=== PATIENT | female | born 1995 | race African-American/Black ===

== ENCOUNTER 2022-03-04 14:37 | Day surgery (SDC) | payer MEDICAID, OTHER ==
[2022-03-04] MEDS ORDERED: hydrALAZINE 20 MG/ML VIAL SLOW IVP PRN (15:53)
[2022-03-04 17:46] LABS: Fetal Membranes Rupture No Membranes Rupture (No Rupture)
[2022-03-05 17:34] LABS: Chlamydia by PCR Not Detected (NotDetected); GC by PCR Not Detected (NotDetected)
== END 2022-03-04 18:20 | disposition home or self-care (01) ==
LOC: CSHLD/OP 14:37
PROVIDERS: ATTEND Student in an Organized Health Care Education/Training Program
DX: O99.891 Other specified diseases and conditions complicating pregnancy (principal); N89.8 Other specified noninflammatory disorders of vagina; O09.293 Supervision of pregnancy with other poor reproductive or obstetric history, third trimester; Z3A.34 34 weeks gestation of pregnancy; Z86.19 Personal history of other infectious and parasitic diseases; Z14.8 Genetic carrier of other disease
CPT/HCPCS: 76819; 84112; 87480; 87491; 87510; 87591; 87660; 99284

== ENCOUNTER 2022-03-12 07:02 | Day surgery (SDC) | payer OTHER ==
[2022-03-12 07:32] VITALS: BMI 27.9
[2022-03-12] MEDS ORDERED: hydrALAZINE 20 MG/ML VIAL SLOW IVP PRN ×2 (07:39→23:19)
[2022-03-12 11:18] LABS: Bilirubin Neg (Negative); Blood, Urine Negative (Negative); Clarity Clear (Clear); Glucose, Urine (Dipstick) Normal (Negative); Ketone, Urine Negative (Negative); Leukocyte Negative (Negative); Nitrite Negative (Negative); Protein, Urine (Dipstick) Negative (Neg-Trace); Urobilinogen Normal mg/dL (Less than 2)
[2022-03-12 11:42] LABS: Urine Culture Reflex No No
[2022-03-12 11:44] LABS: Bacteria/HPF None Seen HPF (None Seen); RBC/HPF 0-3 HPF (0-3); Squamous Epithelial 0-3 HPF (0-3); WBC/HPF 0-3 HPF (0-3)
[2022-03-12 22:51] LABS: Chlamydia by PCR Not Detected (NotDetected); GC by PCR Not Detected (NotDetected)
[2022-03-12] MEDS ORDERED: Fentanyl 100 MCG/2 ML VIAL SLOW IVP PRN (23:19)
[2022-03-12] MEDS ORDERED: Promethazine HCl 25 MG/ML VIAL IM PRN ×2 (23:19→23:21)
[2022-03-12] MEDS ORDERED: Ondansetron PF 4 MG/2 ML Vial IVP PRN ×2 (23:19→23:21)
[2022-03-12] MEDS ORDERED: Lidocaine 1% (PF) 30 ML VIAL SC PRN (23:19)
[2022-03-12] MEDS ORDERED: Naloxone HCl 0.4 mg/ml Vial IVP PRN ×2 (23:21)
[2022-03-12] MEDS ORDERED: Moisturizing Cream (Eucerin) 113 GM JAR TOP PRN (23:21)
[2022-03-12] MEDS ORDERED: Acetaminophen 325 MG TAB PO PRN (23:21)
[2022-03-12] MEDS ORDERED: diphenhydrAMINE 50 MG/ML VIAL IVP PRN (23:21)
[2022-03-12] MEDS ORDERED: Lactated Ringer's 500 ML IV PRN (23:21)
[2022-03-12] MEDS ORDERED: ePHEDrine Sulfate 50 MG/10 ML VIAL SLOW IVP PRN (23:21)
[2022-03-12 23:30] LABS: Hemoglobin 11.8 g/dL (12.0-15.5); Mean Corpuscular HGB CONC 33.9 g/dL (32.0-36.0); Mean Corpuscular Hemoglobin 32.8 pg (27.0-33.0); Mean Corpuscular Volume 96.7 fl (81.6-98.3); Mean Platelet Volume 12.2 fl (7.4-10.4); Platelet Count 122 10x3/uL (150-450); RBC Distribution Width 12.3 % (11.5-14.5); White Blood Cell (WBC) Count 4.8 10x3/uL (3.5-10.5)
[2022-03-12] MEDS ORDERED: Fentanyl 2 mcg/Bupivacaine 0.1% Cassette 100 ML EPIDURAL SCH (23:30)
[2022-03-12] MEDS ORDERED: NS w/ Oxytocin 30 units 500 ML IV SCH ×2 (23:30)
[2022-03-12] MEDS ORDERED: Penicillin G Potassium 5 MILL.UNITS in Sodium Chloride 0.9% 100 ML IVPB SCH (23:30)
[2022-03-12] MEDS ORDERED: Communication Order-Pharmacy FS SCH (23:30)
[2022-03-12] MEDS ORDERED: Betamet Acet/Betamet Na Ph 30 MG/5 ML VIAL IM SCH (23:30)
[2022-03-13 00:01] LABS: Hep B Surf Ag Non-Reactive S/CO (NonReactive); Syphilis Antibody Nonreactive (Nonreactive); Syphilis Antibody Index 0.02 S/CO (<1.00 Non-Reactive)
[2022-03-13 00:02] LABS: HBSAg Index 0.15 S/CO (0-0.99)
[2022-03-13] MEDS ORDERED: Penicillin G 2.5 MILL.units 2.5 MILL.UNITS in Premix Bag 1 BAG IVPB SCH (03:30)
== END 2022-03-12 11:20 | disposition home health service (06) ==
LOC: CSHLD/OP 07:02
PROVIDERS: ATTEND Obstetrics & Gynecology
DX: O47.03 False labor before 37 completed weeks of gestation, third trimester (principal); Z3A.35 35 weeks gestation of pregnancy; O99.343 Other mental disorders complicating pregnancy, third trimester; F32.A Depression, unspecified; Z87.891 Personal history of nicotine dependence; Z79.899 Other long term (current) drug therapy
CPT/HCPCS: 81001; 85027; 86780; 86850; 86900; 86901; 87081; 87340; 87480; 87491; 87510; 87591; 87660; 99284

== ENCOUNTER 2022-03-12 22:30 | Inpatient (IN) | payer OTHER ==
[2022-03-12] MEDS ORDERED: Fentanyl 2 mcg/Bup 0.1% Cadd 100 ML ONE (23:04)
[2022-03-12] MEDS ORDERED: Penicillin G Potassium 5 MILL.UNITS VIAL ONE (23:20)
[2022-03-12] MEDS ORDERED: Carboprost 250 MCG/ML AMP IM PRN (23:26)
[2022-03-12] MEDS ORDERED: Lidocaine 1% (PF) 30 ML VIAL SC PRN (23:26)
[2022-03-12] MEDS ORDERED: Acetaminophen 500 MG TAB PO PRN (23:26)
[2022-03-12] MEDS ORDERED: Ibuprofen 800 MG TAB PO PRN (23:26)
[2022-03-12] MEDS ORDERED: Diphenoxylate HCl/Atropine Tablet PO PRN (23:26)
[2022-03-12] MEDS ORDERED: Methylergonovine 0.2 MG/ML VIAL IM PRN (23:26)
[2022-03-12] MEDS ORDERED: hydrALAZINE 20 MG/ML VIAL SLOW IVP PRN (23:26)
[2022-03-12] MEDS ORDERED: Misoprostol 200 MCG TAB PR PRN (23:26)
[2022-03-12] MEDS ORDERED: Promethazine HCl 25 MG/ML VIAL IM PRN (23:26)
[2022-03-12] MEDS ORDERED: Ondansetron PF 4 MG/2 ML Vial IVP PRN (23:26)
[2022-03-12] MEDS ORDERED: Fentanyl 100 MCG/2 ML VIAL SLOW IVP PRN (23:26)
[2022-03-12] MEDS ORDERED: NS w/ Oxytocin 30 units 500 ML IV SCH (23:30)
[2022-03-12] MEDS ORDERED: Betamet Acet/Betamet Na Ph 30 MG/5 ML VIAL IM SCH (23:30)
[2022-03-12] MEDS ORDERED: Penicillin G Potassium 5 MILL.UNITS in Sodium Chloride 0.9% 100 ML IVPB SCH (23:30)
[2022-03-12 23:34] VITALS: BMI 27.9
[2022-03-13 01:16] LABS: SARS-CoV-2 NAA Rapid Test Not Detected (NotDetected)
[2022-03-13] MEDS ORDERED: Milk Of Magnesia 30 ML UDCUP PO PRN (02:24)
[2022-03-13] MEDS ORDERED: Lanolin Ointment 7 GM TUBE TOP PRN (02:24)
[2022-03-13] MEDS ORDERED: Boostrix 0.5 ML (Tdap) VIAL IM ONE (02:24)
[2022-03-13] MEDS ORDERED: diphenhydrAMINE 25 MG CAP PO PRN (02:24)
[2022-03-13] MEDS ORDERED: Methylergonovine 0.2 MG/ML VIAL IM PRN (02:24)
[2022-03-13] MEDS ORDERED: hydrALAZINE 20 MG/ML VIAL SLOW IVP PRN (02:24)
[2022-03-13] MEDS ORDERED: Promethazine HCl 25 MG/ML VIAL IM PRN (02:24)
[2022-03-13] MEDS ORDERED: Ondansetron PF 4 MG/2 ML Vial IVP PRN (02:24)
[2022-03-13] MEDS ORDERED: Bisacodyl 10 MG SUPP PR PRN (02:24)
[2022-03-13] MEDS ORDERED: Misoprostol 200 MCG TAB VAG PRN (02:24)
[2022-03-13] MEDS ORDERED: Melatonin 3 MG TAB PO PRN (02:25)
[2022-03-13] MEDS ORDERED: NS w/ Oxytocin 30 units 500 ML IV SCH (02:30)
[2022-03-13] MEDS ORDERED: Penicillin G 2.5 MILL.units 2.5 MILL.UNITS in Premix Bag 1 BAG IVPB SCH (03:30)
[2022-03-13] MEDS: Ibuprofen 800 MG TAB PO SCH ×3 (05:58→22:29)
[2022-03-13] MEDS: Ferrous Sulfate 325 MG TAB PO SCH ×2 (07:16→16:42)
[2022-03-13] MEDS: Prenatal Vitamin 1 TAB PO SCH (08:23)
[2022-03-13] MEDS: Docusate 100 MG CAP PO SCH ×2 (08:23→22:00)
[2022-03-13] MEDS: Lactated Ringer's 1,000 ML IV SCH ×2 (14:18→16:42)
[2022-03-14] MEDS: Lactated Ringer's 1,000 ML IV SCH ×2 (00:30→08:23)
[2022-03-14] MEDS: Ibuprofen 800 MG TAB PO SCH ×3 (05:25→21:23)
[2022-03-14] MEDS: Ferrous Sulfate 325 MG TAB PO SCH (08:23)
[2022-03-14] MEDS: Prenatal Vitamin 1 TAB PO SCH (09:10)
[2022-03-14] MEDS: Docusate 100 MG CAP PO SCH ×2 (09:10→21:22)
[2022-03-15] MEDS: Ibuprofen 800 MG TAB PO SCH ×2 (05:04→13:46)
[2022-03-15] MEDS: Lactated Ringer's 1,000 ML IV SCH (07:20)
[2022-03-15] MEDS: Ferrous Sulfate 325 MG TAB PO SCH (07:20)
[2022-03-15 07:33] VITALS: TEMP 98.5
[2022-03-15] MEDS: Docusate 100 MG CAP PO SCH (08:59)
[2022-03-15] MEDS: Prenatal Vitamin 1 TAB PO SCH (08:59)
[2022-03-15 20:51] VITALS: BP 107/75
== END 2022-03-15 20:40 | disposition home or self-care (01) | DRG 807 ==
LOC: CSHLD/OP 22:30 → EDBD 22:30 → CSHLD 22:58 → MERGE 22:58 → CSHPP 03-13 04:05
PROVIDERS: ADMIT Obstetrics & Gynecology; ATTEND Obstetrics & Gynecology
PROC: 10E0XZZ Delivery of Products of Conception, External Approach (ICD-10-PCS; principal; 2022-03-13)
DX: O60.14X0 Preterm labor third trimester with preterm delivery third trimester, not applicable or unspecified (principal); Z37.0 Single live birth; Z3A.35 35 weeks gestation of pregnancy; Z20.822 Contact with and (suspected) exposure to COVID-19; O99.824 Streptococcus B carrier state complicating childbirth; O71.82 Other specified trauma to perineum and vulva; F32.A Depression, unspecified; O99.344 Other mental disorders complicating childbirth; Z87.891 Personal history of nicotine dependence
CPT/HCPCS: 51701; 99285; J0702; J2540; U0002